=== PATIENT | female | born 1955 | race Caucasian/White ===

== ENCOUNTER → 2016-11-02 | Outpatient (CLI) | payer OTHER ==
[~2016-11-02] MED LIST: ADVIL PO; ALEV220T26 PO; ATOR1TAB21 PO; CALC05CR TOP; CELE10TA OR; CHIL1CHW5 PO; CITA10TA5 PO; HYDR10TAB PO; IBUP600T OR; LISI-538 PO; LISI10TA4 OR; NICO14DI20 TD; PERC5TAB8 OR; PERC5TAB8 PO; PERCOCET PO; TYLENOL PO; ZEST10TA OR
[2016-11-02 08:08] LABS: BASO # 0.1 K/mm3 (0.0-0.2); BASO % 0.9 % (0.0-1.0); EOS # 0.6 K/mm3 (0.0-0.50); EOS % 8.5 % (0.0-3.0); LARGE UNSTAINED CELL # 0.1 K/mm3 (0.0-0.4); LARGE UNSTAINED CELL % 1.2 % (0.0-4.0); LYMPH # 2.1 K/mm3 (1.5-4.5); LYMPH % 26.8 % (24.0-44.0); MEAN CORPUSCULAR HEMOGLOBIN 34.7 pg (27.0-33.0); MEAN CORPUSCULAR HGB CONC 33.7 g/dl (32.0-36.5); MEAN CORPUSCULAR VOLUME 102.8 fl (80.0-96.0); MONO # 0.4 K/mm3 (0.0-0.8); MONO % 4.8 % (0.0-5.0); NEUTROPHILS # 4.3 K/mm3 (1.8-7.7); NEUTROPHILS % 57.9 % (36.0-66.0); PLATELET COUNT, AUTOMATED 281 k/mm3 (150-450); RED CELL DISTRIBUTION WIDTH 13.1 % (11.5-14.5); WHITE BLOOD COUNT 7.4 K/mm3 (4.0-10.0)
[2016-11-02 08:32] LABS: ALBUMIN 3.9 GM/DL (3.2-5.2); ALBUMIN/GLOBULIN RATIO 1.34 (1.00-1.93); ALKALINE PHOSPHATASE 109 U/L (45-117); ALT/SGPT 23 U/L (12-78); ANION GAP 7 MEQ/L (8-16); AST/SGOT 18 U/L (15-37); BILIRUBIN,TOTAL 0.4 MG/DL (0.2-1.0); BLOOD UREA NITROGEN 12 MG/DL (7-18); CALCIUM LEVEL 9.1 MG/DL (8.5-10.1); CARBON DIOXIDE LEVEL 30 MEQ/L (21-32); CHLORIDE LEVEL 106 MEQ/L (98-107); CREATININE FOR GFR 0.82 MG/DL (0.55-1.02); GLOMERULAR FILTRATION RATE > 60.0 (>51); GLUCOSE, FASTING 80 MG/DL (70-105); SODIUM LEVEL 143 MEQ/L (136-145); TOTAL PROTEIN 6.8 GM/DL (6.4-8.2)
== END ==
LOC: M LAB 07:22
PROVIDERS: ATTEND Physician Assistant
DX: R53.83 Other fatigue (principal); R55 Syncope and collapse

== ENCOUNTER → 2017-04-19 | Outpatient (CLI) | payer OTHER ==
[~2017-04-19] MED LIST changes: -CHIL1CHW5 PO; +CHIL81CH2 PO
[2017-04-19 09:35] LABS: BASO % 0.6 % (0.0-1.0); EOS # 0.2 K/mm3 (0.0-0.50); EOS % 3.6 % (0.0-3.0); LARGE UNSTAINED CELL # 0.1 K/mm3 (0.0-0.4); LYMPH # 1.8 K/mm3 (1.5-4.5); LYMPH % 27.5 % (24.0-44.0); MEAN CORPUSCULAR HEMOGLOBIN 35.3 pg (27.0-33.0); MEAN CORPUSCULAR HGB CONC 34.1 g/dl (32.0-36.5); MEAN CORPUSCULAR VOLUME 103.6 fl (80.0-96.0); MONO # 0.3 K/mm3 (0.0-0.8); MONO % 4.6 % (0.0-5.0); NEUTROPHILS # 4.1 K/mm3 (1.8-7.7); NEUTROPHILS % 61.8 % (36.0-66.0); PLATELET COUNT, AUTOMATED 300 k/mm3 (150-450); RED CELL DISTRIBUTION WIDTH 12.9 % (11.5-14.5); WHITE BLOOD COUNT 6.7 K/mm3 (4.0-10.0)
[2017-04-19 10:16] LABS: ALBUMIN 3.5 GM/DL (3.2-5.2); ALBUMIN/GLOBULIN RATIO 1.06 (1.00-1.93); ALKALINE PHOSPHATASE 109 U/L (45-117); ALT/SGPT 31 U/L (12-78); ANION GAP 9 MEQ/L (8-16); AST/SGOT 22 U/L (15-37); BILIRUBIN,TOTAL 0.4 MG/DL (0.2-1.0); BLOOD UREA NITROGEN 12 MG/DL (7-18); CALCIUM LEVEL 8.8 MG/DL (8.5-10.1); CARBON DIOXIDE LEVEL 28 MEQ/L (21-32); CHLORIDE LEVEL 106 MEQ/L (98-107); CHOLESTEROL LEVEL 202 MG/DL (<200); CREATININE FOR GFR 0.83 MG/DL (0.55-1.02); FREE T4 0.86 NG/DL (0.76-1.46); GLOMERULAR FILTRATION RATE > 60.0 (>51); GLUCOSE, FASTING 81 MG/DL (70-105); POTASSIUM SERUM 4.3 MEQ/L (3.5-5.1); SODIUM LEVEL 143 MEQ/L (136-145); TOTAL PROTEIN 6.8 GM/DL (6.4-8.2); TRIGLYCERIDES LEVEL 151 MG/DL (<150)
== END ==
LOC: M WUC 08:07
PROVIDERS: ATTEND Physician Assistant
DX: Z13.29 Encounter for screening for other suspected endocrine disorder (principal); Z13.21 Encounter for screening for nutritional disorder; E78.2 Mixed hyperlipidemia

== ENCOUNTER → 2017-06-15 | Outpatient (CLI) | payer OTHER ==
[2017-06-15 11:08] LABS: BASO # 0.1 10^3/uL (0.0-0.2); BASO % 0.8 % (0.0-1.0); EOS # 0.2 10^3/uL (0.0-0.50); EOS % 2.3 % (0.0-3.0); IMMATURE GRANULOCYTE % 0.5 % (0-0); LYMPH # 2.3 10^3/uL (1.5-4.5); LYMPH % 26.3 % (24.0-44.0); MEAN CORPUSCULAR HEMOGLOBIN 34.4 pg (27.0-33.0); MEAN CORPUSCULAR HGB CONC 33.8 g/dl (32.0-36.5); MONO # 0.5 10^3/uL (0.0-0.8); MONO % 5.8 % (0.0-5.0); NEUTROPHILS # 5.6 10^3/uL (1.8-7.7); NEUTROPHILS % 64.3 % (36.0-66.0); PLATELET COUNT, AUTOMATED 290 10^3/uL (150-450); WHITE BLOOD COUNT 8.8 10^3/uL (4.0-10.0)
[2017-06-15 11:26] LABS: ALBUMIN 3.7 GM/DL (3.2-5.2); ALBUMIN/GLOBULIN RATIO 1.09 (1.00-1.93); ALKALINE PHOSPHATASE 113 U/L (45-117); ALT/SGPT 26 U/L (12-78); ANION GAP 3 MEQ/L (8-16); AST/SGOT 22 U/L (15-37); BILIRUBIN,DIRECT 0.2 MG/DL (0.0-0.2); BILIRUBIN,TOTAL 0.6 MG/DL (0.2-1.0); BLOOD UREA NITROGEN 10 MG/DL (7-18); CALCIUM LEVEL 9.2 MG/DL (8.5-10.1); CARBON DIOXIDE LEVEL 33 MEQ/L (21-32); CHLORIDE LEVEL 105 MEQ/L (98-107); CREATININE FOR GFR 0.81 MG/DL (0.55-1.02); GLOMERULAR FILTRATION RATE > 60.0 (>51); GLUCOSE, FASTING 85 MG/DL (70-105); POTASSIUM SERUM 4.6 MEQ/L (3.5-5.1); SODIUM LEVEL 141 MEQ/L (136-145); TOTAL PROTEIN 7.1 GM/DL (6.4-8.2)
== END ==
LOC: M LAB 10:02
PROVIDERS: ATTEND Internal Medicine Gastroenterology
DX: R10.32 Left lower quadrant pain (principal)

== ENCOUNTER → 2017-06-21 | Outpatient (CLI) | payer OTHER ==
[~2017-06-21] MED LIST changes: +GASTROGRAFIN SOLUTION 30ML (Q9963) As Ordered ONE; +ISOVUE-370 76% 100ML VIAL (Q9967) As Ordered ONE
--- NOTE | 2017-06-22 02:54 | REP ---
Clinical: Left lower quadrant pain. Technique: Axial contrast enhanced images from the lung bases to the pubic symphysis using oral and 100 ml Isovue 370 intravenous contrast material with precontrast and delayed images of the abdomen as well as coronal and sagittal re-formations. Comparison: 03/01/2011. Findings: Lung bases are clear. Visualized heart and pericardium normal. Liver, spleen, pancreas, gallbladder, and bilateral adrenal glands are normal / stable. Mild chronic and symmetric perinephric stranding is again appreciated. Small bilateral low density lesions involving the adrenal glands measuring up to 15 mm most consistent with benign adenomatous changes. The enteric system is without obstruction or acute inflammatory process. Few scattered colonic and sigmoid diverticula noted without acute diverticulitis. 1 cm fat containing periumbilical hernia identified. Pelvis demonstrates collapsed bladder and evidence for prior hysterectomy. No ascites. No adenopathy. No abdominal mass lesion. Atherosclerotic changes to the vasculature noted without aneurysm or dissection. Musculoskeletal structures demonstrate age-related degenerative changes. Impression: 1. Few scattered colonic and sigmoid diverticula without acute diverticulitis. 2. Stable adrenal adenomatous changes. 3. 1 cm fat containing periumbilical hernia. 4. No acute abdominopelvic pathology appreciated. Signed by Prashant Villalpando MD 06/22/2017 02:46 A
== END ==
LOC: M RAD 15:54
PROVIDERS: ATTEND Internal Medicine Gastroenterology
DX: R10.32 Left lower quadrant pain (principal); K57.30 Diverticulosis of large intestine without perforation or abscess without bleeding; K42.9 Umbilical hernia without obstruction or gangrene
CPT/HCPCS: 74178; Q9963; Q9967

== ENCOUNTER → 2017-09-28 | Outpatient (CLI) | payer OTHER | LOC: M RAD 09:11 | DX: Z12.2 Encounter for screening for malignant neoplasm of respiratory organs (principal); F17.200 Nicotine dependence, unspecified, uncomplicated | CPT/HCPCS: G0297 ==

== ENCOUNTER → 2017-12-04 | Outpatient (CLI) | payer OTHER ==
[2017-12-04 08:24] LABS: BASO # 0.1 10^3/uL (0.0-0.2); BASO % 0.9 % (0.0-1.0); EOS # 0.2 10^3/uL (0.0-0.50); EOS % 2.8 % (0.0-3.0); HEMATOCRIT 46.9 % (36.0-47.0); HEMOGLOBIN 16.2 g/dl (12.0-16.0); IMMATURE GRANULOCYTE % 0.5 % (0-3.0); LYMPH # 1.9 10^3/uL (1.5-4.5); LYMPH % 23.9 % (24.0-44.0); MEAN CORPUSCULAR HEMOGLOBIN 35.3 pg (27.0-33.0); MEAN CORPUSCULAR HGB CONC 34.5 g/dl (32.0-36.5); MEAN CORPUSCULAR VOLUME 102.2 fl (80.0-96.0); MONO # 0.5 10^3/uL (0.0-0.8); MONO % 6.5 % (0.0-5.0); NEUTROPHILS # 5.2 10^3/uL (1.8-7.7); NEUTROPHILS % 65.4 % (36.0-66.0); PLATELET COUNT, AUTOMATED 313 10^3/uL (150-450); RED BLOOD COUNT 4.59 10^6/uL (4.00-5.40); RED CELL DISTRIBUTION WIDTH 13.2 % (11.5-14.5); WHITE BLOOD COUNT 7.9 10^3/uL (4.0-10.0)
[2017-12-04 09:46] LABS: TOTAL 25(OH) VITAMIN D 21.5 NG/ML (30.0-100.0)
[2017-12-04 09:57] LABS: ALBUMIN 3.8 GM/DL (3.2-5.2); ALBUMIN/GLOBULIN RATIO 1.12 (1.00-1.93); ALKALINE PHOSPHATASE 116 U/L (45-117); ALT/SGPT 31 U/L (12-78); ANION GAP 6 MEQ/L (8-16); AST/SGOT 24 U/L (7-37); BILIRUBIN,TOTAL 0.5 MG/DL (0.2-1.0); BLOOD UREA NITROGEN 16 MG/DL (7-18); CALCIUM LEVEL 9.3 MG/DL (8.5-10.1); CARBON DIOXIDE LEVEL 29 MEQ/L (21-32); CHLORIDE LEVEL 104 MEQ/L (98-107); CHOLESTEROL LEVEL 218 MG/DL (<200); CHOLESTEROL RISK RATIO 3.516 (<5); CREATININE FOR GFR 0.88 MG/DL (0.55-1.30); FREE T4 0.79 NG/DL (0.76-1.46); GLOMERULAR FILTRATION RATE > 60.0 (>51); GLUCOSE, FASTING 98 MG/DL (70-100); HDL CHOLESTEROL 62 MG/DL (>40); LDL CHOLESTEROL 121.4 MG/DL (<100); NON-HDL-C 156 MG/DL; POTASSIUM SERUM 4.5 MEQ/L (3.5-5.1); SODIUM LEVEL 139 MEQ/L (136-145); TOTAL PROTEIN 7.2 GM/DL (6.4-8.2); TRIGLYCERIDES LEVEL 173 MG/DL (<150)
== END ==
LOC: M LAB 07:54
DX: E78.2 Mixed hyperlipidemia (principal); I10 Essential (primary) hypertension
CPT/HCPCS: 84443

== ENCOUNTER → 2018-01-02 | Outpatient (REF) | payer OTHER | LOC: M SFHCSACK 11:52 | DX: J02.9 Acute pharyngitis, unspecified (principal) ==

== ENCOUNTER → 2019-01-17 | Outpatient (REF) | payer OTHER ==
[~2019-01-17] MED LIST changes: +ASPI-286 PO; -CALC05CR TOP; -CHIL81CH2 PO; +DOVO0.007 TOP; -GASTROGRAFIN SOLUTION 30ML (Q9963) As Ordered ONE; +HYDR-2773 PO; -HYDR10TAB PO; -ISOVUE-370 76% 100ML VIAL (Q9967) As Ordered ONE
[2019-01-17 15:58] LABS: RUBELLA IgG QUALITATIVE IMMUNE (IMMUNE)
[2019-01-21 00:06] LABS: HERPES ZOSTER, VARICELLA IgG 1525 index (Immune >165); MUMPS VIRUS IgG ANTIBODY >300.0 AU/mL (Immune >10.9); RUBEOLA IgG ANTIBODY >300.0 AU/mL (Immune >29.9)
== END ==
LOC: M SFHCSACK 13:30
PROVIDERS: ATTEND Physician Assistant
DX: Z00.00 Encounter for general adult medical examination without abnormal findings (principal)

== ENCOUNTER → 2019-01-20 | Outpatient (REF) | payer OTHER ==
[2019-01-20 14:12] LABS: BASO # 0.1 10^3/uL (0.0-0.2); BASO % 0.8 % (0.0-1.0); EOS # 0.2 10^3/uL (0.0-0.50); EOS % 2.6 % (0.0-3.0); HEMATOCRIT 50.1 % (36.0-47.0); HEMOGLOBIN 16.7 g/dl (12.0-15.5); LYMPH % 27.2 % (24.0-44.0); MEAN CORPUSCULAR HEMOGLOBIN 33.9 pg (27.0-33.0); MEAN CORPUSCULAR HGB CONC 33.3 g/dl (32.0-36.5); MEAN CORPUSCULAR VOLUME 101.6 fl (80.0-96.0); MONO # 0.4 10^3/uL (0.0-0.8); MONO % 5.6 % (0.0-5.0); NEUTROPHILS # 4.6 10^3/uL (1.8-7.7); NEUTROPHILS % 63.2 % (36.0-66.0); PLATELET COUNT, AUTOMATED 273 10^3/uL (150-450); RED BLOOD COUNT 4.93 10^6/uL (4.00-5.40); WHITE BLOOD COUNT 7.2 10^3/uL (4.0-10.0)
[2019-01-20 14:41] LABS: ALT/SGPT 26 U/L (12-78); BILIRUBIN,TOTAL 0.8 MG/DL (0.2-1.0); BLOOD UREA NITROGEN 14 MG/DL (7-18); CALCIUM LEVEL 9.4 MG/DL (8.8-10.2); CARBON DIOXIDE LEVEL 30 MEQ/L (21-32); CHLORIDE LEVEL 104 MEQ/L (98-107); CHOLESTEROL LEVEL 245 MG/DL (<200); CHOLESTEROL RISK RATIO 3.181 (<5); CREATININE FOR GFR 0.93 MG/DL (0.55-1.30); FREE T4 0.82 NG/DL (0.76-1.46); GLOMERULAR FILTRATION RATE > 60.0 (>45); GLUCOSE, FASTING 85 MG/DL (70-100); HDL CHOLESTEROL 77 MG/DL (>40); LDL CHOLESTEROL 138 MG/DL (<100); NON-HDL-C 168 MG/DL; POTASSIUM SERUM 4.5 MEQ/L (3.5-5.1); SODIUM LEVEL 137 MEQ/L (136-145); TOTAL PROTEIN 6.9 GM/DL (6.4-8.2); TRIGLYCERIDES LEVEL 151 MG/DL (<150)
[2019-01-20 15:19] LABS: TOTAL 25(OH) VITAMIN D 74.3 NG/ML (30.0-100.0)
[2019-01-20 15:30] LABS: RUBELLA IgG QUALITATIVE IMMUNE (IMMUNE)
[2019-01-22 08:22] LABS: HERPES ZOSTER, VARICELLA IgG 1669 index (Immune >165); MUMPS VIRUS IgG ANTIBODY >300.0 AU/mL (Immune >10.9); RUBEOLA IgG ANTIBODY >300.0 AU/mL (Immune >29.9)
== END ==
LOC: M SFHCSACK 10:41
PROVIDERS: ATTEND Physician Assistant
DX: I10 Essential (primary) hypertension (principal); E78.2 Mixed hyperlipidemia; E03.9 Hypothyroidism, unspecified; E55.9 Vitamin D deficiency, unspecified

== ENCOUNTER → 2019-04-24 | Outpatient (REF) | payer OTHER | LOC: M LAB REF 12:11 | PROVIDERS: ATTEND Physician Assistant | DX: R30.0 Dysuria (principal) ==

== ENCOUNTER → 2019-10-08 | Outpatient (REF) | payer OTHER | LOC: M LAB REF 12:11 | PROVIDERS: ATTEND Ophthalmology | DX: H02.9 Unspecified disorder of eyelid (principal) ==

== ENCOUNTER → 2020-06-08 | Outpatient (CLI) | payer OTHER ==
--- NOTE | 2020-06-16 16:36 | REP ---
CT STUDY CHEST WITHOUT CONTRAST: LOW-DOSE SCREENING EXAM HISTORY: Nicotine dependence. COMPARISON: Chest CT study 09/28/2017. CT FINDINGS: There is minimal linear fibrosis in the bases. No pulmonary mass lesion or significant pulmonary nodule is appreciated. There are degenerative disc changes in the thoracic spine. There are multiple old healed rib fractures bilaterally. Some vascular calcification. IMPRESSION: Lung-RADS Category 1 findings. Repeat screening exam suggested in one year. MTDD
== END ==
LOC: M RAD 08:16
PROVIDERS: ATTEND Physician Assistant
DX: F17.210 Nicotine dependence, cigarettes, uncomplicated (principal)

== ENCOUNTER → 2020-07-16 | Outpatient (REF) | payer OTHER ==
[2020-07-16 14:28] LABS: ALBUMIN 4.2 GM/DL (3.2-5.2); BILIRUBIN,TOTAL 0.6 MG/DL (0.2-1.0); CHOLESTEROL RISK RATIO 3.507 (<5); CREATININE FOR GFR 1.47 MG/DL (0.55-1.30); GLOMERULAR FILTRATION RATE 38.3 (>45); TOTAL PROTEIN 7.6 GM/DL (6.4-8.2)
== END ==
LOC: M SFHCADAM 09:25
PROVIDERS: ATTEND Physician Assistant
DX: E78.2 Mixed hyperlipidemia (principal); M46.1 Sacroiliitis, not elsewhere classified

== ENCOUNTER → 2020-10-05 | Outpatient (REF) | payer OTHER ==
[~2020-10-05] MED LIST changes: -LISI-538 PO; +LISI20TA33 PO
[2020-10-05 13:56] LABS: CALCIUM LEVEL 9.5 MG/DL (8.8-10.2); CREATININE FOR GFR 1.15 MG/DL (0.55-1.30); GLOMERULAR FILTRATION RATE 50.9 (>45); POTASSIUM SERUM 4.9 MEQ/L (3.5-5.1)
== END ==
LOC: M SFHCADAM 10:38
PROVIDERS: ATTEND Physician Assistant
DX: N17.9 Acute kidney failure, unspecified (principal)

== ENCOUNTER → 2021-01-19 | Outpatient (CLI) | payer OTHER ==
[2021-01-19 18:00] LABS: BASO % 0.5 % (0.0-1.0); EOS # 0.3 10^3/uL (0.0-0.5); EOS % 3.6 % (0.0-3.0); HEMATOCRIT 49.7 % (36.0-47.0); HEMOGLOBIN 16.3 g/dl (12.0-15.5); LYMPH # 2.6 10^3/uL (1.5-5.0); LYMPH % 33.8 % (24.0-44.0); MEAN CORPUSCULAR HEMOGLOBIN 34.4 pg (27.0-33.0); MEAN CORPUSCULAR HGB CONC 32.8 g/dl (32.0-36.5); MEAN CORPUSCULAR VOLUME 104.9 fl (80.0-96.0); MONO # 0.6 10^3/uL (0.0-0.8); MONO % 7.3 % (2.0-8.0); NEUTROPHILS # 4.1 10^3/uL (1.5-8.5); NEUTROPHILS % 54.1 % (36.0-66.0); PLATELET COUNT, AUTOMATED 315 10^3/uL (150-450); RED BLOOD COUNT 4.74 10^6/uL (4.00-5.40); WHITE BLOOD COUNT 7.5 10^3/uL (4.0-10.0)
--- NOTE | 2021-01-19 18:01 | REPVR ---
PROCEDURE INFORMATION: Exam: CT Abdomen And Pelvis Without Contrast Exam date and time: 01/19/2021 5:34 PM Age: 65 years old Clinical indication: Abdominal pain; Additional info: Kidney pain TECHNIQUE: Imaging protocol: Computed tomography of the abdomen and pelvis without contrast. Radiation optimization: All CT scans at this facility use at least one of these dose optimization techniques: automated exposure control; mA and/or kV adjustment per patient size (includes targeted exams where dose is matched to clinical indication); or iterative reconstruction. COMPARISON: CT ABD PELVIS W/O FOL BY WIT 06/21/2017 5:40 PM FINDINGS: Lungs: No suspicious mass or airspace process in the visualized lung bases. Liver: Noncontrast liver shows no obvious lesion. Gallbladder and bile ducts: Gallbladder is present and shows no evidence of gallstone. Pancreas: Noncontrast pancreas shows no obvious mass or adjacent fluid. Spleen: Noncontrast spleen shows no obvious focal deformity. Adrenal glands: Adrenals are unremarkable aside from fat containing bilateral 1 cm benign adenomas. These are unchanged since 2017. Kidneys and ureters: Kidneys demonstrate mild perinephric stranding. No renal calculus and no hydronephrosis or ureter calculus. Stomach and bowel: No evidence of small bowel obstruction. Diverticular changes are present within the colon without inflammation. Appendix: Normal caliber appendix is identified, with no adjacent inflammation. Intraperitoneal space: No pneumoperitoneum. Vasculature: Atherosclerotic change present in the aorta, without aneurysm. Lymph nodes: No enlarged lymph nodes. Urinary bladder: Urinary bladder appears normal. Reproductive: Uterus is surgically absent. Bones/joints: Bony structures are normal except for lumbar spine degenerative disc changes. Soft tissues: Fat containing umbilical hernia is present. No effacement of normal fat planes in the ischiorectal fossa. Other findings: Limited evaluation without enteric or IV contrast. IMPRESSION: 1. No evidence of renal stone or obstructive uropathy. 2. No evidence of acute appendicitis or concerning bowel abnormality. No explanation for the presenting clinical symptoms. Electronically signed by: Toby Mack On 01/19/2021 18:01:40 PM
[2021-01-19 18:16] LABS: ALBUMIN 4.1 GM/DL (3.2-5.2); BILIRUBIN,TOTAL 0.5 MG/DL (0.2-1.0); CALCIUM LEVEL 9.7 MG/DL (8.8-10.2); CREATININE FOR GFR 1.03 MG/DL (0.55-1.30); GLOMERULAR FILTRATION RATE 57.6 (>45); POTASSIUM SERUM 4.6 MEQ/L (3.5-5.1); TOTAL PROTEIN 7.5 GM/DL (6.4-8.2)
== END ==
LOC: M LAB 17:04 → M RAD 17:04
PROVIDERS: ATTEND Physician Assistant
DX: N23 Unspecified renal colic (principal); R31.29 Other microscopic hematuria

== ENCOUNTER → 2021-01-19 | Outpatient (REF) | payer OTHER | LOC: M SFHCADAM 16:26 | PROVIDERS: ATTEND Physician Assistant | DX: N23 Unspecified renal colic (principal) ==

== ENCOUNTER → 2021-12-15 | Outpatient (REF) | payer OTHER ==
[~2021-12-15] MED LIST changes: -ASPI-286 PO; -CITA10TA5 PO; +CITA10TA7 PO; +SM C81CH2 PO
[2021-12-15 17:32] LABS: BASO # 0.1 10^3/uL (0.0-0.2); BASO % 0.6 % (0.0-1.0); EOS # 0.3 10^3/uL (0.0-0.5); EOS % 3.1 % (0.0-3.0); HEMATOCRIT 47.4 % (36.0-47.0); HEMOGLOBIN 16.1 g/dl (12.0-15.5); LYMPH # 2.4 10^3/uL (1.5-5.0); LYMPH % 26.7 % (24.0-44.0); MEAN CORPUSCULAR VOLUME 100.2 fl (80.0-96.0); MONO # 0.6 10^3/uL (0.0-0.8); MONO % 6.2 % (2.0-8.0); NEUTROPHILS # 5.6 10^3/uL (1.5-8.5); NEUTROPHILS % 62.7 % (36.0-66.0); PLATELET COUNT, AUTOMATED 335 10^3/uL (150-450); RED BLOOD COUNT 4.73 10^6/uL (4.00-5.40)
[2021-12-15 18:08] LABS: ALBUMIN 4.2 GM/DL (3.2-5.2); BILIRUBIN,TOTAL 0.5 MG/DL (0.2-1.0); CALCIUM LEVEL 10.4 MG/DL (8.8-10.2); CHOLESTEROL RISK RATIO 4.784 (<5); CREATININE FOR GFR 1.44 MG/DL (0.55-1.30); FREE T4 0.95 NG/DL (0.76-1.46); POTASSIUM SERUM 4.6 MEQ/L (3.5-5.1); THYROID STIMULATING HORMONE 3.09 uIU/ML (0.358-3.740); TOTAL 25(OH) VITAMIN D 27.7 NG/ML (30.0-100.0); TOTAL PROTEIN 7.5 GM/DL (6.4-8.2)
[2021-12-15 18:17] LABS: HEMOGLOBIN A1c 5.3 %
== END ==
LOC: M SFHCADAM 15:56
PROVIDERS: ATTEND Physician Assistant
DX: Z12.11 Encounter for screening for malignant neoplasm of colon (principal); Z13.1 Encounter for screening for diabetes mellitus; F17.210 Nicotine dependence, cigarettes, uncomplicated; E03.9 Hypothyroidism, unspecified; E55.9 Vitamin D deficiency, unspecified; E78.2 Mixed hyperlipidemia; F41.1 Generalized anxiety disorder; I10 Essential (primary) hypertension

== ENCOUNTER → 2022-01-11 | Outpatient (REF) | payer OTHER ==
[2022-01-11 17:04] LABS: ALBUMIN 3.9 GM/DL (3.2-5.2); BILIRUBIN,TOTAL 0.5 MG/DL (0.2-1.0); CALCIUM LEVEL 9.8 MG/DL (8.8-10.2); CREATININE FOR GFR 1.32 MG/DL (0.55-1.30); GLOMERULAR FILTRATION RATE 43.1 (>45); TOTAL PROTEIN 7.2 GM/DL (6.4-8.2)
[2022-01-11 17:13] LABS: PTH INTACT 138.4 PG/ML (18.5-88.0)
== END ==
LOC: M SFHCADAM 08:55
PROVIDERS: ATTEND Physician Assistant
DX: N18.31 Chronic kidney disease, stage 3a (principal); E83.52 Hypercalcemia

== ENCOUNTER → 2022-01-20 | Outpatient (CLI) | payer OTHER | LOC: M WHC 11:20 | PROVIDERS: ATTEND Physician Assistant | DX: N18.31 Chronic kidney disease, stage 3a (principal) ==

== ENCOUNTER → 2022-08-09 | Outpatient (CLI) | payer OTHER ==
[~2022-08-09] MED LIST changes: +BUSP15TA47; +LEVO25TA5; +LISI40TA4
== END ==
LOC: M ADAMS 10:03
PROVIDERS: ATTEND Physician Assistant
DX: R22.42 Localized swelling, mass and lump, left lower limb (principal); M77.32 Calcaneal spur, left foot

== ENCOUNTER → 2022-08-09 | Outpatient (REF) | payer OTHER ==
[2022-08-09 15:14] LABS: BASO # 0.1 10^3/uL (0.0-0.2); EOS # 0.3 10^3/uL (0.0-0.5); EOS % 3.5 % (0.0-3.0); HEMATOCRIT 52.2 % (36.0-47.0); HEMOGLOBIN 17.1 g/dl (12.0-15.5); LYMPH # 1.8 10^3/uL (1.5-5.0); LYMPH % 22.9 % (24.0-44.0); MEAN CORPUSCULAR HEMOGLOBIN 33.6 pg (27.0-33.0); MEAN CORPUSCULAR HGB CONC 32.8 g/dl (32.0-36.5); MEAN CORPUSCULAR VOLUME 102.6 fl (80.0-96.0); MONO # 0.6 10^3/uL (0.0-0.8); PLATELET COUNT, AUTOMATED 287 10^3/uL (150-450); RED BLOOD COUNT 5.09 10^6/uL (4.00-5.40); WHITE BLOOD COUNT 7.8 10^3/uL (4.0-10.0)
[2022-08-09 15:58] LABS: ERYTHROCYTE SEDIMENTATION RATE 4 mm/hr (0-30)
[2022-08-09 16:35] LABS: C REACTIVE PROTEIN QUANTITATIV 0.7 MG/DL (<1.0)
[2022-08-09 16:38] LABS: ALBUMIN 3.5 G/DL (3.2-5.2); BILIRUBIN,TOTAL 0.6 MG/DL (0.3-1.2); CALCIUM LEVEL 9.3 MG/DL (8.3-10.6); CREATININE FOR GFR 1.01 MG/DL (0.55-1.30); GLOMERULAR FILTRATION RATE 58.7 (>45); POTASSIUM SERUM 4.6 MMOL/L (3.5-5.1); TOTAL PROTEIN 6.8 G/DL (5.7-8.2)
== END ==
LOC: M SFHCADAM 09:44
PROVIDERS: ATTEND Physician Assistant
DX: R22.42 Localized swelling, mass and lump, left lower limb (principal); I10 Essential (primary) hypertension

== ENCOUNTER 2022-10-10 09:33 | Emergency (ER) | payer OTHER ==
[~2022-10-10] VITALS: Ht 170.2 cm; Wt 83.2 kg
[2022-10-10 10:14] LABS: BASO # 0.1 10^3/uL (0.0-0.2); BASO % 0.8 % (0.0-1.0); EOS # 0.3 10^3/uL (0.0-0.5); EOS % 2.9 % (0.0-3.0); HEMATOCRIT 53.8 % (36.0-47.0); LYMPH % 23.7 % (24.0-44.0); MEAN CORPUSCULAR HEMOGLOBIN 33.6 pg (27.0-33.0); MEAN CORPUSCULAR HGB CONC 33.6 g/dl (32.0-36.5); MONO # 0.5 10^3/uL (0.0-0.8); MONO % 6.3 % (2.0-8.0); NEUTROPHILS # 5.6 10^3/uL (1.5-8.5); NEUTROPHILS % 65.8 % (36.0-66.0); PLATELET COUNT, AUTOMATED 372 10^3/uL (150-450); RED BLOOD COUNT 5.38 10^6/uL (4.00-5.40); WHITE BLOOD COUNT 8.5 10^3/uL (4.0-10.0)
[2022-10-10 10:15] LABS: HEMOGLOBIN 18.1 g/dl (12.0-15.5)
[2022-10-10 10:33] LABS: LIPASE 45 U/L (12-53)
[2022-10-10 10:35] LABS: ALBUMIN 3.8 G/DL (3.2-5.2); ALKALINE PHOSPHATASE 140 U/L (46-116); ALT/SGPT 17 U/L (7.0-40); AST/SGOT 21 U/L (<34); BILIRUBIN,DIRECT 0.2 MG/DL (<0.4); BILIRUBIN,TOTAL 0.6 MG/DL (0.3-1.2); BLOOD UREA NITROGEN 18 MG/DL (9-23); CALCIUM LEVEL 9.4 MG/DL (8.3-10.6); CARBON DIOXIDE LEVEL 31 MMOL/L (20-31); CHLORIDE LEVEL 98 MMOL/L (98-107); CK-MB VALUE MASS < 1.0 NG/ML (<3.6); CREATININE FOR GFR 1.03 MG/DL (0.55-1.30); GLOMERULAR FILTRATION RATE 57.4 (>45); GLUCOSE, FASTING 88 MG/DL (74-106); POTASSIUM SERUM 4.3 MMOL/L (3.5-5.1); SODIUM LEVEL 134 MMOL/L (136-145); TOTAL PROTEIN 7.6 G/DL (5.7-8.2)
[2022-10-10 10:37] LABS: CPK CREATINE PHOSPHOKINASE 44 U/L (34-145); MB/CK RELATIVE INDEX 2.27 (< OR =4); THYROID STIMULATING HORMONE 4.449 uIU/ML (0.55-4.78)
[2022-10-10] MEDS ORDERED: ISOVUE-370 76% 100ML VIAL As Ordered ONE (11:47)
[2022-10-10] MEDS ORDERED: TOPA1TAB PO (13:16)
[2022-10-10 13:30] VITALS: BP 177/86
== END 2022-10-10 13:50 | disposition home or self-care (01) ==
LOC: M ED 10:53
DX: G43.109 Migraine with aura, not intractable, without status migrainosus (principal); R07.9 Chest pain, unspecified; R91.8 Other nonspecific abnormal finding of lung field; I25.2 Old myocardial infarction; I10 Essential (primary) hypertension; E78.5 Hyperlipidemia, unspecified; F17.200 Nicotine dependence, unspecified, uncomplicated; F32.A Depression, unspecified; Z88.6 Allergy status to analgesic agent; Z88.5 Allergy status to narcotic agent; Z79.82 Long term (current) use of aspirin; Z79.811 Long term (current) use of aromatase inhibitors; Z79.899 Other long term (current) drug therapy

== ENCOUNTER → 2022-10-19 | Outpatient (REF) | payer OTHER ==
[~2022-10-19] MED LIST changes: +AMLO25TA PO; +ASPI81TA26 PO; +BACI1CAP PO; -BUSP15TA47; +BUSP15TA47 PO; +CITA40TA7 PO; +ERGO500029 PO; -LEVO25TA5; +LEVO25TA5 PO; -LISI40TA4; +LISI40TA4 PO; +METO25TA4 PO; +TOPA1TAB PO
[2022-10-19 12:48] LABS: INR 0.87
[2022-10-19 12:49] LABS: PARTIAL THROMBOPLASTIN TIME 30.9 SECONDS (24.8-34.2)
[2022-10-19 13:03] LABS: BLOOD UREA NITROGEN 13 MG/DL (9-23); CALCIUM LEVEL 8.9 MG/DL (8.3-10.6); CARBON DIOXIDE LEVEL 29 MMOL/L (20-31); CHLORIDE LEVEL 102 MMOL/L (98-107); CREATININE FOR GFR 0.91 MG/DL (0.55-1.30); GLOMERULAR FILTRATION RATE > 60.0 (>45); GLUCOSE, FASTING 73 MG/DL (74-106); POTASSIUM SERUM 4.6 MMOL/L (3.5-5.1); SODIUM LEVEL 138 MMOL/L (136-145)
== END ==
LOC: M SFHCADAM 08:04
PROVIDERS: ATTEND Physician Assistant
DX: R91.8 Other nonspecific abnormal finding of lung field (principal)

== ENCOUNTER → 2022-10-20 | Outpatient (CLI) | payer OTHER ==
[~2022-10-20] MED LIST changes: +PROHANCE 279.3MG/ML 5ML VIAL As Ordered ONE
== END ==
LOC: M RAD 12:13
PROVIDERS: ATTEND Physician Assistant
DX: R42 Dizziness and giddiness (principal); R09.89 Other specified symptoms and signs involving the circulatory and respiratory systems; I65.23 Occlusion and stenosis of bilateral carotid arteries
CPT/HCPCS: 70544; 70553; 93880; A9576

== ENCOUNTER → 2022-10-23 | Outpatient (CLI) | payer OTHER ==
[~2022-10-23] MED LIST changes: +HOME MED LIST COMPLETE! XX SCH; +LIDOCAINE 1% MDV 20ML VIAL As Ordered ONE; -PROHANCE 279.3MG/ML 5ML VIAL As Ordered ONE
[2022-10-23 11:30] VITALS: BP 180/90
== END ==
LOC: M IRPRO 08:11
PROVIDERS: ATTEND Specialist
DX: R91.1 Solitary pulmonary nodule (principal)

== ENCOUNTER → 2022-10-25 | Outpatient (REF) | payer OTHER ==
[~2022-10-25] MED LIST changes: -HOME MED LIST COMPLETE! XX SCH; -LIDOCAINE 1% MDV 20ML VIAL As Ordered ONE
== END ==
LOC: M SFHCADAM 12:30
PROVIDERS: ATTEND Physician Assistant
DX: R19.7 Diarrhea, unspecified (principal)

== ENCOUNTER → 2022-11-17 | Outpatient (CLI) | payer OTHER | LOC: M RAD 07:00 | PROVIDERS: ATTEND Internal Medicine Pulmonary Disease | DX: R91.8 Other nonspecific abnormal finding of lung field (principal) ==

== ENCOUNTER → 2022-11-20 | Outpatient (CLI) | payer OTHER | LOC: M LABSMTC 07:35 | PROVIDERS: ATTEND Anesthesiology | DX: Z01.812 Encounter for preprocedural laboratory examination (principal); Z20.822 Contact with and (suspected) exposure to COVID-19 ==

== ENCOUNTER 2022-11-22 07:37 | Day surgery (SDC) | payer OTHER ==
[~2022-11-22] VITALS: Ht 170.2 cm; Wt 83.9 kg
[~2022-11-22 07:37] MED LIST changes: +ALBUTEROL SULFATE 2.5MG/0.5ML INH NEB SOLN INH ONE; +LIDOCAINE PRES-FREE 2% 10ML AMP INH ONE
[2022-11-22] MEDS ORDERED: LR 1,000 ML IV SCH (07:50)
[2022-11-22] MEDS ORDERED: SUGAMMADEX SODIUM 500 MG/5 ML VIAL (BRIDION) As Ordered ONE (08:03)
[2022-11-22] MEDS ORDERED: propofoL 200 MG/20 ML VIAL As Ordered ONE (08:03)
[2022-11-22] MEDS ORDERED: LIDOCAINE 2% 100MG/5ML SDV (FOR ANES.) As Ordered ONE (08:03)
[2022-11-22] MEDS ORDERED: ONDANSETRON 4MG 2ML VIAL As Ordered ONE (08:03)
[2022-11-22] MEDS ORDERED: ROCURONIUM BROMIDE 50MG/5ML VIAL As Ordered ONE ×2 (08:03→10:27)
[2022-11-22] MEDS ORDERED: MIDAZOLAM INJ 2MG/2ML VIAL As Ordered ONE (08:13)
[2022-11-22] MEDS ORDERED: fentaNYL 100 MCG/2 ML INJECTION As Ordered ONE (08:13)
[2022-11-22 08:21] LABS: PLATELET COUNT, AUTOMATED 295 10^3/uL (150-450)
[2022-11-22 08:31] LABS: INR 0.91; PROTHROMBIN TIME 12.5 SECONDS (12.5-14.5)
[2022-11-22 08:32] LABS: PARTIAL THROMBOPLASTIN TIME 28.6 SECONDS (24.8-34.2)
[2022-11-22] MEDS ORDERED: EPINEPHrine 1MG/10ML SYRINGE 1.5IN As Ordered ONE (09:08)
[2022-11-22] MEDS ORDERED: CETACAINE SPRAY 5GM As Ordered ONE (09:08)
[2022-11-22] MEDS ORDERED: ACETAMINOPHEN 1000MG 100ML IV BAG As Ordered ONE (09:35)
[2022-11-22] MEDS ORDERED: ePHEDrine SULFATE 25 MG/5 ML(5MG/ML) SYRINGE As Ordered ONE (09:41)
[2022-11-22] MEDS ORDERED: ONDANSETRON 4MG 2ML VIAL IV PRN (10:55)
[2022-11-22] MEDS ORDERED: oxyCODONE 5MG TAB PO PRN (10:55)
[2022-11-22] MEDS ORDERED: fentaNYL 100 MCG/2 ML INJECTION IV PRN (10:55)
[2022-11-22 12:30] VITALS: BP 144/71
== END 2022-11-22 12:33 | disposition home or self-care (01) ==
LOC: M SDC 07:37
PROVIDERS: ATTEND Internal Medicine Pulmonary Disease
DX: C34.92 Malignant neoplasm of unspecified part of left bronchus or lung (principal); R94.2 Abnormal results of pulmonary function studies; I10 Essential (primary) hypertension; E03.9 Hypothyroidism, unspecified; E78.00 Pure hypercholesterolemia, unspecified; F41.1 Generalized anxiety disorder; D75.1 Secondary polycythemia; Z88.5 Allergy status to narcotic agent; Z79.899 Other long term (current) drug therapy; Z79.82 Long term (current) use of aspirin; Z79.890 Hormone replacement therapy; F17.210 Nicotine dependence, cigarettes, uncomplicated
CPT/HCPCS: 31624; 31627; 31628; 31629; 31654; 36415; 71045; 76000; 85027; 85610; 85730; 88108; 88173; 88305; 88313; J1100; J2250; J2405; J3010

== ENCOUNTER → 2022-12-08 | Outpatient (CLI) | payer OTHER ==
[~2022-12-08] MED LIST changes: -ALBUTEROL SULFATE 2.5MG/0.5ML INH NEB SOLN INH ONE; -LIDOCAINE PRES-FREE 2% 10ML AMP INH ONE
== END ==
LOC: M ONCR 09:49
PROVIDERS: ATTEND General Practice
DX: C34.11 Malignant neoplasm of upper lobe, right bronchus or lung (principal); D75.1 Secondary polycythemia; E03.9 Hypothyroidism, unspecified; E78.5 Hyperlipidemia, unspecified; F17.218 Nicotine dependence, cigarettes, with other nicotine-induced disorders; F41.9 Anxiety disorder, unspecified; Z79.82 Long term (current) use of aspirin; Z79.890 Hormone replacement therapy; Z79.899 Other long term (current) drug therapy; Z80.3 Family history of malignant neoplasm of breast; Z88.5 Allergy status to narcotic agent

== ENCOUNTER → 2022-12-14 | Outpatient (CLI) | payer MEDICARE, OTHER ==
[~2022-12-14] MED LIST changes: +FAMOTIDINE 40 MG/5 ML PO; +LEVO1TAB39 PO; +LIDO1CRE42 TOP; +LIDOCAINE 1% MDV 20ML VIAL As Ordered ONE; +MAGICMW SS; +MAGN400T2 PO; +MIDAZOLAM INJ 2MG/2ML VIAL As Ordered ONE; +NS 1,000 ML IV SCH; +NYST-38 PO; +ONDA8TAB8 PO; +OXYC1SOL3 PO; +PRED5PAK PO; +PROC10TA5 PO; +SUCR1SS PO; +TRAM50TA2 PO; +ceFAZolin 2 GM/D5W 50 ML IV BAG As Ordered ONE; +ceFAZolin SOD 2 GM in IV 1 EA IV ONE; +diphenhydrAMINE 50MG/ML VIAL As Ordered ONE; +famotidine; +fentaNYL 100 MCG/2 ML INJECTION As Ordered ONE
[2022-12-14 07:08] VITALS: TEMP 97.3
[2022-12-14 10:59] VITALS: BP 154/65; O2SAT 93
== END ==
LOC: M IRPRO 07:01
PROVIDERS: ATTEND Internal Medicine Hematology & Oncology
DX: C34.90 Malignant neoplasm of unspecified part of unspecified bronchus or lung (principal)
CPT/HCPCS: 36561; 99152; 99153; C1769; C1788; C1894; J0690; J1200; J2250; J3010

== ENCOUNTER 2023-01-05 08:39 | Outpatient (RCR) | payer MEDICARE, OTHER ==
[~2023-01-05 08:39] MED LIST changes: -FAMOTIDINE 40 MG/5 ML PO; -LEVO1TAB39 PO; -LIDO1CRE42 TOP; -LIDOCAINE 1% MDV 20ML VIAL As Ordered ONE; -MAGICMW SS; -MAGN400T2 PO; -MIDAZOLAM INJ 2MG/2ML VIAL As Ordered ONE; -NS 1,000 ML IV SCH; -NYST-38 PO; -OXYC1SOL3 PO; -PRED5PAK PO; -SUCR1SS PO; -TRAM50TA2 PO; -ceFAZolin 2 GM/D5W 50 ML IV BAG As Ordered ONE; -ceFAZolin SOD 2 GM in IV 1 EA IV ONE; -diphenhydrAMINE 50MG/ML VIAL As Ordered ONE; -famotidine; -fentaNYL 100 MCG/2 ML INJECTION As Ordered ONE
[2023-01-08] MEDS ORDERED: LIDO1CRE42 TOP (11:11)
[2023-01-11] MEDS ORDERED: MAGN400T2 PO (09:30)
== END 2023-01-07 ==
LOC: M ONCR 08:39
PROVIDERS: ATTEND General Practice
DX: C34.2 Malignant neoplasm of middle lobe, bronchus or lung (principal)

== ENCOUNTER → 2023-01-09 | Outpatient (POV) | payer MEDICARE, OTHER ==
[~2023-01-09] VITALS: Ht 170.2 cm; Wt 84.0 kg
[~2023-01-09] MED LIST changes: +LIDO1CRE42 TOP; +MAGN400T2 PO
[2023-01-09 13:05] VITALS: BP 140/75
== END ==
LOC: M IRPOV 13:01
PROVIDERS: ATTEND Radiology Diagnostic Radiology
DX: Z45.2 Encounter for adjustment and management of vascular access device (principal); Z88.5 Allergy status to narcotic agent

== ENCOUNTER 2023-02-04 12:17 | Emergency (ER) | payer MEDICARE, OTHER ==
[~2023-02-04] VITALS: Ht 170.2 cm; Wt 79.5 kg
[~2023-02-04 12:17] MED LIST changes: +LEVO1TAB39 PO; +MAGICMW SS; +OXYC1SOL3 PO; +PRED5PAK PO; +TRAM50TA2 PO
[2023-02-04] MEDS ORDERED: NS 1,000 ML IV SCH (13:10)
[2023-02-04] MEDS ORDERED: fentaNYL 100 MCG/2 ML INJECTION IV ONE (13:25)
[2023-02-04] MEDS ORDERED: ONDANSETRON 4MG 2ML VIAL IV ONE (13:55)
[2023-02-04] MEDS ORDERED: ONDANSETRON 4MG 2ML VIAL As Ordered ONE (13:56)
[2023-02-04 14:06] LABS: BASO % 2.6 % (0.0-1.0); HEMATOCRIT 39.4 % (36.0-47.0); HEMOGLOBIN 13.9 g/dl (12.0-15.5); LYMPH # 0.1 10^3/uL (1.5-5.0); LYMPH % 33.3 % (24.0-44.0); MEAN CORPUSCULAR HEMOGLOBIN 34.2 pg (27.0-33.0); MEAN CORPUSCULAR HGB CONC 35.3 g/dl (32.0-36.5); MEAN CORPUSCULAR VOLUME 96.8 fl (80.0-96.0); MONO # 0.1 10^3/uL (0.0-0.8); MONO % 15.4 % (2.0-8.0); RED BLOOD COUNT 4.07 10^6/uL (4.00-5.40)
[2023-02-04 14:16] LABS: NEUTROPHILS # 0.2 10^3/uL (1.5-8.5); PLATELET COUNT, AUTOMATED 46 10^3/uL (150-450)
[2023-02-04 14:17] LABS: WHITE BLOOD COUNT 0.4 10^3/uL (4.0-10.0)
[2023-02-04 14:26] LABS: LIPASE 31 U/L (12-53)
[2023-02-04 14:29] LABS: ALBUMIN 3.1 G/DL (3.2-5.2); ALKALINE PHOSPHATASE 93 U/L (46-116); ALT/SGPT 13 U/L (7.0-40); AST/SGOT 11 U/L (<34); BILIRUBIN,DIRECT 0.2 MG/DL (<0.4); BILIRUBIN,TOTAL 0.5 MG/DL (0.3-1.2); BLOOD UREA NITROGEN 20 MG/DL (9-23); CALCIUM LEVEL 8.8 MG/DL (8.3-10.6); CARBON DIOXIDE LEVEL 28 MMOL/L (20-31); CHLORIDE LEVEL 99 MMOL/L (98-107); CREATININE FOR GFR 0.97 MG/DL (0.55-1.30); GLOMERULAR FILTRATION RATE > 60.0 (>45); GLUCOSE, FASTING 83 MG/DL (74-106); POTASSIUM SERUM 4.1 MMOL/L (3.5-5.1); SODIUM LEVEL 134 MMOL/L (136-145)
[2023-02-04 15:06] LABS: MAGNESIUM LEVEL 1.4 MG/DL (1.8-2.4)
[2023-02-04] MEDS ORDERED: GI COCKTAIL 50ML BTL(HYOSCYAMINE/MAALOX/LIDOCAINE VISCOUS)(1:3:1) PO ONE (15:10)
[2023-02-04] MEDS ORDERED: KETOROLAC 30 MG/ML 1ML VIAL IV ONE (15:10)
[2023-02-04] MEDS ORDERED: SUCRALFATE SUSP 1GM/10ML UD PO ONE (17:00)
[2023-02-04] MEDS ORDERED: SUCR1SS PO (17:29)
[2023-02-04 17:37] VITALS: BP 140/67
[2023-02-04] MEDS ORDERED: famotidine (17:37)
[2023-02-04] MEDS ORDERED: FAMOTIDINE 40 MG/5 ML PO (17:37)
[2023-02-06] MEDS ORDERED: NYST-38 PO (08:42)
[2023-02-06] MEDS ORDERED: OXYC1SOL3 PO (09:20)
== END 2023-02-04 18:23 | disposition home or self-care (01) ==
LOC: M ED 12:17
DX: L59.8 Other specified disorders of the skin and subcutaneous tissue related to radiation (principal); C34.90 Malignant neoplasm of unspecified part of unspecified bronchus or lung; I10 Essential (primary) hypertension; E78.5 Hyperlipidemia, unspecified; E03.9 Hypothyroidism, unspecified; F17.200 Nicotine dependence, unspecified, uncomplicated; Z88.5 Allergy status to narcotic agent; Z92.3 Personal history of irradiation; Z79.811 Long term (current) use of aromatase inhibitors; Z79.899 Other long term (current) drug therapy
CPT/HCPCS: 71250; 74176; 80048; 80076; 83605; 83690; 83735; 85025; 85049; 85055; 93041; 96361; 96374; 96375; 99284; J1885; J2405; J3010

== ENCOUNTER → 2023-02-07 | Outpatient (RCR) | payer MEDICARE ==
[~2023-02-07] MED LIST changes: +FAMOTIDINE 40 MG/5 ML PO; +NYST-38 PO; +SUCR1SS PO; +famotidine
== END ==
LOC: M ONCR 01-08 08:39
PROVIDERS: ATTEND General Practice
DX: C34.2 Malignant neoplasm of middle lobe, bronchus or lung (principal)

== ENCOUNTER 2023-02-15 08:11 | Outpatient (RCR) | payer MEDICARE ==
[2023-02-19] MEDS ORDERED: LIDO1CRE42 TOP (09:24)
== END 2023-03-09 ==
LOC: M ONCR 08:11
PROVIDERS: ATTEND General Practice
DX: C34.2 Malignant neoplasm of middle lobe, bronchus or lung (principal)

== ENCOUNTER → 2023-03-01 | Outpatient (CLI) | payer MEDICARE | LOC: M ONCR 09:18 | PROVIDERS: ATTEND General Practice | DX: C34.90 Malignant neoplasm of unspecified part of unspecified bronchus or lung (principal); R09.89 Other specified symptoms and signs involving the circulatory and respiratory systems; Z92.21 Personal history of antineoplastic chemotherapy; Z92.3 Personal history of irradiation ==

== ENCOUNTER → 2023-03-09 | Outpatient (CLI) | payer MEDICARE ==
[~2023-03-09] MED LIST changes: +ISOVUE-370 76% 100ML VIAL As Ordered ONE
== END ==
LOC: M RAD 09:48
PROVIDERS: ATTEND Nurse Practitioner
DX: C34.90 Malignant neoplasm of unspecified part of unspecified bronchus or lung (principal)
CPT/HCPCS: 71260; Q9967

== ENCOUNTER → 2023-03-15 | Outpatient (CLI) | payer MEDICARE ==
[~2023-03-15] MED LIST changes: -ISOVUE-370 76% 100ML VIAL As Ordered ONE
== END ==
LOC: M ONCR 12:44
PROVIDERS: ATTEND General Practice
DX: C34.2 Malignant neoplasm of middle lobe, bronchus or lung (principal); Z92.21 Personal history of antineoplastic chemotherapy; Z92.3 Personal history of irradiation

== ENCOUNTER → 2023-06-26 | Outpatient (CLI) | payer MEDICARE, OTHER ==
[~2023-06-26] MED LIST changes: -LIDO1CRE42 TOP; +LIDO30CR18 TOP
== END ==
LOC: M PLAIMG 08:44
PROVIDERS: ATTEND Specialist
DX: C34.90 Malignant neoplasm of unspecified part of unspecified bronchus or lung (principal)

== ENCOUNTER → 2023-09-17 | Outpatient (CLI) | payer MEDICARE, OTHER ==
[~2023-09-17] MED LIST changes: +BETA5OI TOP; +LABE100T6
== END ==
LOC: M PLARAD 10:29
PROVIDERS: ATTEND Specialist
DX: C34.90 Malignant neoplasm of unspecified part of unspecified bronchus or lung (principal); C34.11 Malignant neoplasm of upper lobe, right bronchus or lung
CPT/HCPCS: 78815; A9552

== ENCOUNTER → 2023-11-07 | Outpatient (CLI) | payer MEDICARE, OTHER ==
[~2023-11-07] MED LIST changes: +LEVO25TA5
== END ==
LOC: M ADAMS 09:55
PROVIDERS: ATTEND Physician Assistant
DX: J22 Unspecified acute lower respiratory infection (principal)

== ENCOUNTER → 2023-12-21 | Outpatient (CLI) | payer MEDICARE, OTHER ==
[~2023-12-21] MED LIST changes: +ISOVUE-370 76% 100ML VIAL ONE
== END ==
LOC: M PLAIMG 10:15
PROVIDERS: ATTEND Specialist
DX: C34.90 Malignant neoplasm of unspecified part of unspecified bronchus or lung (principal)
CPT/HCPCS: 71260; Q9967

== ENCOUNTER → 2024-01-24 | Outpatient (REF) | payer MEDICARE, OTHER ==
[~2024-01-24] MED LIST changes: -ISOVUE-370 76% 100ML VIAL ONE; +LEVO50TA5 PO
== END ==
LOC: M SFHCDERM 17:39
PROVIDERS: ATTEND Physician Assistant
DX: L57.0 Actinic keratosis (principal)

== ENCOUNTER → 2024-03-17 | Outpatient (CLI) | payer MEDICARE, OTHER ==
[~2024-03-17] MED LIST changes: +GASTROGRAFIN SOLUTION 30ML As Ordered ONE; +ISOVUE-370 76% 100ML VIAL As Ordered ONE; +ONDA-284 PO; -ONDA8TAB8 PO
== END ==
LOC: M RAD 08:17
PROVIDERS: ATTEND Internal Medicine Medical Oncology
DX: C34.90 Malignant neoplasm of unspecified part of unspecified bronchus or lung (principal)
CPT/HCPCS: 71260; 74177; Q9963; Q9967

== ENCOUNTER → 2024-07-04 | Outpatient (CLI) | payer MEDICARE, OTHER | LOC: M RAD 11:11 | PROVIDERS: ATTEND Specialist | DX: C34.90 Malignant neoplasm of unspecified part of unspecified bronchus or lung (principal) | CPT/HCPCS: 71260; 74177; Q9963; Q9967 ==